=== PATIENT | male | born 1995 | race Caucasian/White ===

== ENCOUNTER 2016-12-10 21:32 | Emergency (ER) | payer SELFPAY ==
[~2016-12-10] VITALS: Ht 182.9 cm; Wt 99.9 kg
[2016-12-10] MEDS ORDERED: LIDOCAINE 1% (XYLOCAINE) 20 ML VIAL INJ ONE (21:55)
[2016-12-10] MEDS ORDERED: BACITRACIN OINTMENT 0.9 GM PACKET TOP ONE (21:55)
[2016-12-10 23:00] VITALS: BP 161/79
== END 2016-12-10 23:01 | disposition home or self-care (01) ==
LOC: ED 21:34
DX: S61.211A Laceration without foreign body of left index finger without damage to nail, initial encounter (principal); W20.8XXA Other cause of strike by thrown, projected or falling object, initial encounter; Y92.410 Unspecified street and highway as the place of occurrence of the external cause
CPT/HCPCS: 12001; 99282; 99283